=== PATIENT | female | born 1945 | race Caucasian/White ===

== ENCOUNTER 2016-06-30 15:28 | Emergency (ER) | payer OTHER ==
[~2016-06-30] VITALS: Ht 167.6 cm; Wt 80.2 kg
[2016-06-30 15:32] VITALS: BP 161/87
== END 2016-06-30 16:40 | disposition home or self-care (01) ==
LOC: ED 16:26
DX: K02.9 Dental caries, unspecified (principal); K04.7 Periapical abscess without sinus
CPT/HCPCS: 99283